=== PATIENT | female | born 1970 | race Caucasian/White ===

== ENCOUNTER 2016-08-09 18:24 | Emergency (ER) | payer OTHER ==
[~2016-08-09] VITALS: Ht 165.1 cm; Wt 81.8 kg
[~2016-08-09 18:24] MED LIST: CHOL10008 PO; SYN25 PO
[2016-08-09 18:52] VITALS: BP 133/87; PULSE 80; RESP 20; O2SAT 98
--- NOTE | 2016-08-09 20:38 | ED.REPORT ---
HPI-Head Prob / Injury Date of Service August 09, 2016 ED Provider: Chevy Hilliard PA-C Sherry is a 45-year-old woman with a history of hypothyroidism presents with a chief complaint of facial pain. Patient states that she was walking through a playground and tripped over the leg with swelling set on Saturday. She struck the right side of her face against the pavement. Admits pain over her left zygomatic arch, pain with opening her jaw. Admits to a worsening headache which she rates 8 out of 10 located above her left eye. Denies loss of consciousness, seizures, vomiting, use of blood thinners, bleeding disorders. Also complains of neck pain but denies radiculopathy, neurological symptoms. Denies . Nursing Notes Stated Complaint: POST HEAD INJURY, LEFT SIDE FACIAL PAIN Chief Complaint: Head, Face, Neck Trauma Nursing Notes Reviewed: Yes Allergies: Coded Allergies: No Known Allergies (Unverified , 05/15/13) Scheduled Cholecalciferol-Expunged Drug, Do Not Renew! (Vitamin D3-Expunged Drug, Do Not Renew!) 1,000 Unit Tab.chew 1,000 UNIT PO DAILY PLEASE VERIFY DOSAGE Levothyroxine-Expunged Drug, Do Not Renew! (Synthroid-Expunged Drug, Do Not Renew!) 25 Mcg Tablet 75 MCG PO DAILYAC 0.025 MG = 25 MCG General Time Seen by Provider: 20:07 Chief Complaint Blunt head trauma Past Medical History Past Medical History Hypothyroidism Past Surgical History Thyroidectomy Review of Systems Negative unless stated otherwise in history of present illness Physical Exam General: Well appearing, well developed, well nourished, no acute distress. Head: Atraumatic, normocephalic. No mastoid tenderness. Negative raccoon eyes, Schuler sign Eyes: No scleral icterus or injection. No discharge. PERRL. Vision grossly intact. Ears: Pinna and tragus nontender with manipulation. External auditory canal patent, atraumatic and without discharge. Tympanic membrane gillespie, shiny and translucent without fluid, bulging, retraction or perforation. Hearing grossly intact. Nose: Normal to inspection, Tenderness over left maxilla. Symmetrical, nares patent without discharge. No frontal sinus tenderness. Mouth/pharynx: 2 cm abrasion over the left aspect of the lower lip. Normal, atraumatic dentition, mucus membranes moist. Tonsils 2+ and symmetrical, uvula midline. Pharynx noninjected, no cobblestoning or discharge. Voice clear. Neck: No tenderness or lymphadenopathy. Trachea midline. Respiratory: Regular rate and rhythm. Breath sounds present, clear to auscultation and equal bilaterally. No respiratory distress. No increased work of breathing, speaks in complete sentences. Cardiovascular: Regular rate and rhythm, without murmur, gallop or rub. No pedal edema. Skin: Warm and dry. Neurological: Deltoid abduction, wrist flexion and extension, finger flexion and abduction strength 5/5 B/L. Sensation to light touch intact over deltoid as well as first, third and fifth digits B/L. Biceps, triceps and brachioradialis reflexes 2+ B/L. negative pronator drift. Cranial nerves: Vision grossly intact, PERRL, EOMI. Facial motion symmetrical, sensation to light touch over forehead, maxilla and mandible present and equal B /L. Voice clear and fluent, no drooling/pooling of saliva, uvula rises midline.. Psychological: Alert and oriented. Speech appropriate, linear and logical. Behavior appropriate. Initial Vital Signs Vital Signs (First) Date Time Temp Pulse Resp B/P Pulse Ox O2 Delivery O2 Flow Rate FiO2 08/09/16 18:52 36.4 80 20 133/87 98 Room Air Initial VS: Vital signs normal Interpretation & Diagnostics X-Ray C-Spine Interpretation PROCEDURE: X-RAY CERVICAL SPINE, 2 OR 3 VIEWS INDICATIONS: 45 year-old female with cervical spine midline tenderness after fall. IMPRESSION: No acute bony injuries of the cervical spine to the T1 level. Interpretation / Wet Read by: Interpret - ED physician, Interpret - Radiologist , [facility] - [facility] CT Head Interpretation PROCEDURE: CT BRAIN WITHOUT CONTRAST ([id number]) INDICATIONS: 45 year-old female with worsening headaches after fall. IMPRESSION: 1. No acute intracranial abnormalities after fall. 2. 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 Interpretation / Wet Read by: Interpret - Radiologist Re-Eval/Medical Decision Med Decision/Clinical Course I discussed this case with Dr. Cullen. Otherwise healthy 45-year-old female presents for evaluation following a ground- level fall onto pavement in which she struck her head. Admits worsening left- sided headache, denies other red flag symptoms for intracranial bleed. Admits neck, pain denies neurological symptoms. Physical examination reveals left maxillary tenderness without bruising or swelling, midline cervical spinous process tenderness at roughly C5. Normal neurological examination. Head CT reveals no intracranial injury, cervical spine x-rays are normal. At this point I am reassured against inter cranial bleeding, cervical spine injury, facial fracture. This patient is stable or safe to be discharged to home. Advised over the counter analgesia, primary care follow-up, provided emergency return precautions. Patient verbalizes understanding of and consent to the plan Discharge & Departure Primary Impression: Contusion Encounter type: initial encounter Contusion area: head Contusion of head detail: unspecified part of head Qualified Code: S00.93XA - Contusion of unspecified part of head, initial encounter Disposition: Home All VS Reviewed: Yes Condition: Stable Additional Instructions: Evaluation in the emergency department following a fall includes history, physical examination, head CT and neck x-rays, all of which are reassuring that you did not suffer a serious injury in this fall. I believe your pain is caused by a contusion which should resolve on its own without further treatment. I believe you are stable and safe to be discharged to home. The pain is best treated with 600 mg of ibuprofen (Advil, Motrin) every 6 hours , or 1000 mg of acetaminophen (Tylenol) every 6 hours. These drugs can be taken at the same time for more severe pain. Follow-up with your primary care provider if your symptoms are not completely resolved in about a week. Return to the emergency department for any new or worsening symptoms including a sudden change to your headache, vision changes, one-sided weakness, difficulty speaking, repeated vomiting or seizure activity. Referrals: Sandy Kerr MD (PCP) EDSupervising Provider for APC: Trevor Cullen MD copies to: Sandy Kerr MD, Seth PA-C August 09, 2016 20:38
--- NOTE | 2016-08-09 21:03 | DRSVH ---
PROCEDURE: X-RAY CERVICAL SPINE, 2 OR 3 VIEWS INDICATIONS: 45 year-old female with cervical spine midline tenderness after fall. TECHNIQUE: 3 view(s) of the cervical spine were acquired. COMPARISON: None. FINDINGS: Bones: No fractures or dislocations to the T1 level. The lateral masses of C1 appear intact on the odontoid view. No suspicious bony lesions. Soft tissues: No prevertebral soft tissue swelling. IMPRESSION: No acute bony injuries of the cervical spine to the T1 level. Dictated by: Scar Callejas M.D. on 08/09/2016 at 21:00 Approved by: Scar Callejas M.D. on 08/09/2016 at 21:01
--- NOTE | 2016-08-09 21:25 | DRSVH ---
PROCEDURE: CT BRAIN WITHOUT CONTRAST ([id number]) INDICATIONS: 45 year-old female with worsening headaches after fall. TECHNIQUE: Noncontrast 4.5 mm thick angled axial sections acquired from the foramen magnum to the vertex, with c oronal reformats. COMPARISON: None. FINDINGS: Image quality: Excellent. CSF spaces: Basal cisterns are patent. No extra-axial fluid collections. Ventricles are normal in size and shape. Brain: No midline shift. No intracranial masses or hemorrhage. Dickerson-white matter interface is norm al. Skull and face: Calvarium and visualized facial bones are intact, without suspicious lesions. Sinuses: There is asymmetrically decreased size of the right maxillary sinus, along with internal de nse calcification. Other visualized sinuses and mastoids are clear. IMPRESSION: 1. No acute intracranial abnormalities after fall. 2. Asymmetrically small right maxillary sinus may reflect congenital hypoplasia versus sequelae of si lent sinus syndrome. Dictated by: Scar Callejas M.D. on 08/09/2016 at 21:20 Approved by: Scar Callejas M.D. on 08/09/2016 at 21:24
[2016-08-09 21:50] VITALS: BP 141/88; PULSE 74; RESP 20; O2SAT 99
== END 2016-08-09 21:51 | disposition home or self-care (01) ==
LOC: SED 18:24
DX: S00.93XA Contusion of unspecified part of head, initial encounter (principal); W01.0XXA Fall on same level from slipping, tripping and stumbling without subsequent striking against object, initial encounter; Y93.01 Activity, walking, marching and hiking; Y92.9 Unspecified place or not applicable; Y99.8 Other external cause status; E03.9 Hypothyroidism, unspecified
CPT/HCPCS: 70450; 72040; 96372; 99284; J1885